=== PATIENT | female | born 1990 | race Caucasian/White ===

== ENCOUNTER 2016-09-13 08:45 | Day surgery (SDC) | payer OTHER ==
[~2016-09-13] VITALS: Ht 154.9 cm; Wt 65.0 kg
[2016-09-13] VITALS (13 sets, daily range): BP systolic 109–128; BP diastolic 50–74; PULSE 65–99; RESP 16–20; Ht 154.9 cm; Wt 65.0 kg
--- NOTE | 2016-09-13 09:08 | HPN ---
Date/Time of Note Date/Time of Note DATE: 09/13/16 TIME: 09:08 Interval H&P Admission Note Pt. seen H&P reviewed: No system changes OZ HYDE MD Sep 13, 2016 09:08
--- NOTE | 2016-09-13 11:56 | PREOPHP ---
DATE OF ADMISSION: 09/13/2016 HISTORY OF PRESENT ILLNESS: A 27-year-old female patient with a long history of nasal obstruction t o breathing, having been treated in [place] with nasal surgery approximately 4 years ago, complains o f persistent nasal obstruction to breathing, noted to have septal deviation with extensive nasal sin us polyposis confirmed on a CAT scan of 04/2016, unresponsive to medication now admitted to the [facility] for corrective nasal sinus surgery. PAST MEDICAL HISTORY, ALLERGIES, DAILY MEDICATIONS, MEDICAL ILLNESSES, CLOTTING DISORDERS, FAMILY HI STORY, REVIEW OF SYSTEMS: Negative. PAST SURGICAL HISTORY: See HPI. HABITS: Alcohol: Social. Tobacco, recreational. Drugs: None. PHYSICAL EXAMINATION: GENERAL: Well-developed, well-nourished female patient in no acute distress. HEAD: Normocephalic. No masses or deformities. EARS: Ears and tympanic membranes are normal. NOSE: Septal deviation with turbinate hypertrophy and bilateral obstructive nasal polyposis. OROPHARYNX: Clear. NECK: No masses or adenopathy. CHEST: Clear to P and A. HEART: Regular sinus rhythm without murmur. ABDOMEN: Soft, bowel sounds normal. No masses or megaly. EXTREMITIES: Full range of motion without deformity. NEUROLOGIC: Physiologic. PELVIC AND RECTAL: Not done. IMPRESSION: Sinonasal polyposis with septal deviation and turbinate hypertrophy. RECOMMENDATIONS: Admit for surgery. Dictated By: OZ DUGGAN/JANICE Conf#: [id number] DID#: [id number]
[2016-09-13] MEDS ORDERED: LIDOCAINE 1%/EPI 30 ML INJ ONE (13:35)
[2016-09-13] MEDS ORDERED: COCAINE 4% 4 ML TOP ONE ×2 (13:36→13:41)
[2016-09-13] MEDS ORDERED: BACITRACIN 0.9 GM OINT ONE (13:37)
[2016-09-13] MEDS ORDERED: PROPOFOL 20 ML ONE (13:40)
[2016-09-13] MEDS ORDERED: SUCCINYLCHOLINE CHLORIDE 100 MG/5 ML SYG IV ONE (13:40)
[2016-09-13] MEDS ORDERED: ROCURONIUM 50 MG INJ ONE (13:40)
[2016-09-13] MEDS ORDERED: FENTAnyl 50 MCG/ML VIAL ONE (13:40)
[2016-09-13] MEDS ORDERED: MIDAZOLAM 1 MG/ML 2 ML INJ ONE (13:40)
[2016-09-13] MEDS ORDERED: LIDOCAINE 2% (SDV) 5 ML INJ ONE (13:40)
[2016-09-13] MEDS ORDERED: SCOPOLAMINE 1.5 MG PATCH ONE (13:41)
[2016-09-13] MEDS ORDERED: DEXAMETHASONE 4 MG/ML 1 ML INJ ONE (14:02)
[2016-09-13] MEDS ORDERED: ONDANSETRON 4 MG INJ ONE (14:02)
[2016-09-13] MEDS ORDERED: NEOSTIGMINE 3 MG/3 ML SYRINGE ONE (14:23)
[2016-09-13] MEDS ORDERED: GLYCOPYRROLATE 0.4 MG INJ ONE (14:23)
[2016-09-13] MEDS ORDERED: HYDROmorphONE (0.2 MG/ML) 10ML SYG IV PRN ×2 (15:30)
[2016-09-13] MEDS ORDERED: MEPERIDINE 25 MG INJ IV PRN (15:30)
[2016-09-13] MEDS ORDERED: PROCHLORPERAZINE 10 MG INJ IV PRN (15:30)
[2016-09-13] MEDS ORDERED: METOCLOPRAMIDE 10 MG INJ IV PRN (15:30)
[2016-09-13] MEDS ORDERED: OXYCODONE/ACETAMINOPHEN (5/325) TAB PO PRN ×2 (15:30)
[2016-09-13] MEDS ORDERED: ONDANSETRON 4 MG INJ IV PRN (15:30)
[2016-09-13] MEDS ORDERED: FENTAnyl 50 MCG/ML VIAL IV PRN (15:30)
[2016-09-13] MEDS ORDERED: DIPHENHYDRAMINE 50 MG INJ IV PRN (15:30)
--- NOTE | 2016-09-14 17:54 | OPR ---
DATE OF OPERATION: 09/13/2016 PREOPERATIVE DIAGNOSES: 1. Septal deviation. 2. Turbinate hypertrophy. 3. Sinonasal polyposis. 4. Chronic sinusitis. POSTOPERATIVE DIAGNOSES: 1. Septal deviation. 2. Turbinate hypertrophy. 3. Sinonasal polyposis. 4. Chronic sinusitis. PROCEDURE PERFORMED: Septoplasty, turbinate reduction, nasal polypectomy, bilateral endoscopic maxi llary sinus surgery, bilateral endoscopic anterior and posterior ethmoid endoscopic sinus surgery, b ilateral frontal sinus surgery, bilateral sphenoid endoscopic sinus surgery. DESCRIPTION OF PROCEDURE: The patient brought to the operating room under parenteral sedation, gene ral oral endotracheal anesthesia. With the patient in the supine position, sterile sheets and drape s applied. Nose anesthetized with 5% cottonoid cocaine and injectable Xylocaine 1% epinephrine 1:10 0,000. Polyps were removed bilaterally with snare and Susan forceps. The inferior turbinate jaylyn eliz were lightly crushed and outfractured. A left septal hemitransfixion incision was made. Septal flaps were elevated. Quadrilateral cartilage was skeletonized and portions removed inferiorly and posteriorly and the remaining cartilage through and through cut to correct cartilaginous obstruction . Septal compartment was suctioned. The incision closed with interrupted 4-0 chromic. Attention t hen turned to the left middle meatus with 0 and 30 degree telescopes. The middle turbinate was medi alized. The uncinate process was removed and extensive polypectomy was performed with removal of po lyps from the anterior and posterior ethmoids, nasal frontal recess, sphenoid sinus, and ostium of t he left maxillary sinus. A similar procedure was performed on the right side with medialization of the middle turbinate followed by removal of the uncinate process and dissection carried posteriorly removing polyps from the anterior and posterior ethmoids, nasofrontal recess, maxillary sinus ostium , and the sphenoid sinus. The nose was then suctioned, packed with bacitracin impregnated Nasapore sponge. A drip pad was applied. The patient awakened and extubated in the operating room and retur sena to recovery in excellent condition. ESTIMATED BLOOD LOSS: 5 to 10 mL. COMPLICATIONS: None. Dictated By: OZ DUGGAN/JANICE Conf#: [id number] DID#: [id number]
== END 2016-09-13 18:15 | disposition home or self-care (01) ==
LOC: SDS 08:45
PROVIDERS: ATTEND Otolaryngology Otolaryngology/Facial Plastic Surgery
DX: J34.3 Hypertrophy of nasal turbinates (principal); J34.2 Deviated nasal septum; J32.8 Other chronic sinusitis; J33.8 Other polyp of sinus
CPT/HCPCS: 30140; 30520; 31255; 31256; 31276; 31287; 84703; 88304; J0330; J1100; J2175; J2250; J2405; J2710; J3010; Z7512; Z7610

== ENCOUNTER 2017-05-23 09:09 | Day surgery (SDC) | payer OTHER ==
[2017-05-22 17:24] VITALS: Ht 162.6 cm; Wt 52.7 kg
--- NOTE | 2017-05-22 18:32 | HP ---
DATE OF ADMISSION: 05/23/2017 HISTORY OF PRESENT ILLNESS: A 27-year-old female patient with a long history of right ear infection with drainage and hearing loss, noted to have a perforation of the tympanic membrane, now admitted to the hospital for corrective right ear surgery. Past medical history, allergies, daily medications, medical conditions, clotting disorders, family history, and review of systems negative. PRIOR SURGERY: Nasal sinus surgery in 2016. HABITS: Alcohol social. Tobacco or recreational drugs none. PHYSICAL EXAMINATION: GENERAL: Well-developed, well-nourished female patient in no acute distress. HEENT: Head is normocephalic. No masses or deformities. Ears and tympanic membranes, there is a central dry right tympanic membrane perforation. Nose clear. Oropharynx clear. NECK: No masses or adenopathy. CHEST: Clear to P and A. HEART: Regular sinus rhythm without murmur. ABDOMEN: Soft. Bowel sounds normal. No masses or megaly. EXTREMITIES: Full range of motion without deformity. NEUROLOGIC: Physiologic. RECTAL AND PELVIC: Not done. IMPRESSION: Right otitis perforata. RECOMMENDATION: Admit for surgery. Dictated By: Wayne Ortiz MD /annmarie/archie /Document#: [id number]
[~2017-05-23] VITALS: Ht 162.6 cm; Wt 52.7 kg
[2017-05-23] VITALS (9 sets, daily range): BP systolic 104–108; BP diastolic 60–70; PULSE 66–88; RESP 13–18
[2017-05-23] MEDS ORDERED: ROCURONIUM 50 MG INJ ONE (10:16)
[2017-05-23] MEDS ORDERED: MIDAZOLAM 1 MG/ML 2 ML INJ ONE (10:16)
[2017-05-23] MEDS ORDERED: FENTAnyl 50 MCG/ML VIAL ONE (10:16)
[2017-05-23] MEDS ORDERED: PROPOFOL 20 ML ONE (10:16)
[2017-05-23] MEDS ORDERED: DIPHENHYDRAMINE 50 MG INJ IV PRN (10:30)
[2017-05-23] MEDS ORDERED: ONDANSETRON 4 MG INJ IV PRN (10:30)
[2017-05-23] MEDS ORDERED: METOCLOPRAMIDE 10 MG INJ IV PRN (10:30)
[2017-05-23] MEDS ORDERED: FENTAnyl 50 MCG/ML VIAL IV PRN ×3 (10:30)
[2017-05-23] MEDS ORDERED: OXYCODONE/ACETAMINOPHEN (5/325) TAB PO PRN (10:30)
[2017-05-23] MEDS ORDERED: HYDROmorphONE (0.2 MG/ML) 10ML SYG IV PRN ×3 (10:30)
[2017-05-23] MEDS ORDERED: MEPERIDINE 25 MG INJ IV PRN (10:30)
[2017-05-23] MEDS ORDERED: EPHEDrine SULFATE 50 MG/5 ML SYG IV PRN (10:30)
[2017-05-23] MEDS ORDERED: GELATIN SIZE 100 SPONGE ONE (10:44)
[2017-05-23] MEDS ORDERED: EPINEPHrine 1 MG INJ ONE (10:44)
[2017-05-23] MEDS ORDERED: LIDOCAINE 2%/EPI (MDV) 20ML INJ ONE (10:44)
[2017-05-23] MEDS ORDERED: SCOPOLAMINE 1.5 MG PATCH ONE (10:51)
[2017-05-23] MEDS ORDERED: ONDANSETRON 4 MG INJ ONE (11:07)
[2017-05-23] MEDS ORDERED: METOCLOPRAMIDE 10 MG INJ ONE (11:08)
[2017-05-23] MEDS ORDERED: DEXAMETHASONE 4 MG/ML 1 ML INJ ONE (11:08)
[2017-05-23] MEDS ORDERED: KETOROLAC 30 MG INJ ONE (11:16)
--- NOTE | 2017-05-23 12:22 | SIPON ---
Date/Time of Note Date/Time of Note DATE: 05/23/17 TIME: 12:20 Operative Report Preoperative Diagnosis right otitis media Postoperative Diagnosis same Operation/Procedure Performed right tympanoplasty Surgeon see signature line marketing assistant retail division none Anesthesia: general Estimated blood loss: minimal Transfusion Required none Specimen none Grafts/Implants none Complications none OZ HYDE MD May 23, 2017 12:22
--- NOTE | 2017-05-23 12:22 | SIPON ---
Date/Time of Note Date/Time of Note DATE: 05/23/17 TIME: 12:20 Operative Report Preoperative Diagnosis right otitis media Postoperative Diagnosis same Operation/Procedure Performed right tympanoplasty Surgeon see signature line assistant kitchen manager none Anesthesia: general Estimated blood loss: minimal Transfusion Required none Specimen none Grafts/Implants none Complications none OZ HYDE MD May 23, 2017 12:22
--- NOTE | 2017-05-23 12:22 | SIPON ---
Date/Time of Note Date/Time of Note DATE: 05/23/17 TIME: 12:20 Operative Report Preoperative Diagnosis right otitis media Postoperative Diagnosis same Operation/Procedure Performed right tympanoplasty Surgeon see signature line retirement assistant none Anesthesia: general Estimated blood loss: minimal Transfusion Required none Specimen none Grafts/Implants none Complications none OZ HYDE MD May 23, 2017 12:22
--- NOTE | 2017-05-23 19:05 | OPR ---
DATE OF OPERATION: 05/23/2017 PREOPERATIVE DIAGNOSIS: Right otitis perforata. POSTOPERATIVE DIAGNOSIS: Right otitis perforata. PROCEDURE PERFORMED: Right tympanoplasty. OPERATION: Patient brought to the operating room under parenteral sedation, general anesthesia by LMA, the right ear prepped and draped in usual manner for ear surgery. The Ze[employer] operating microscope was utilized throughout the procedure. The tympanic membrane was noted to contain a central dry perforation. The margins of the perforation were debrided with a Roper needle and cup forceps. The middle ear was filled with dry Gelfoam. An incision was then made along the posterior tragus down to the tragal perichondrium which was elevated and excised and set aside for use as a graft. The incision was closed with interrupted 5-0 silk. The perichondrial chondral graft was then brought into the operative field and placed as a medial graft covering all margins of the perforation. A disc of compressed Gelfoam was placed then lateral to the tympanic membrane. The ear canal was filled with dry Gelfoam. A light cotton dressing was applied and the procedure terminated. The patient awakened and extubated in the operating room, returned to recovery in excellent condition. ESTIMATED BLOOD LOSS: Nil. COMPLICATIONS: None. Dictated By: Wayne Ortiz MD /annmarie/archie /Document#: [id number]
== END 2017-05-23 13:29 | disposition home or self-care (01) ==
LOC: SDS 09:09
PROVIDERS: ATTEND Otolaryngology Otolaryngology/Facial Plastic Surgery
DX: H66.91 Otitis media, unspecified, right ear (principal); H91.91 Unspecified hearing loss, right ear
CPT/HCPCS: 69631; J0171; J1100; J1885; J2250; J2405; J2765; J3010; Z7512; Z7610